=== PATIENT | female | born 1945 | race Caucasian/White ===

== ENCOUNTER 2019-04-28 06:27 | Day surgery (SDC) | payer OTHER ==
[2019-04-25 15:22] VITALS: BMI 19.2
[2019-04-28 08:44] VITALS: TEMP 97.9
[2019-04-28 11:02] VITALS: BP 140/77; PULSE 76
--- NOTE | 2019-04-29 16:52 | PATH ---
Surgical Pathology Report Patient Name: ELVIN IGLESIAS [facility]. Rec. #: [id number] /Age/Gender: 1945 (Age: 73) / F Account: [id number] Location: U-ENDOSCOPY Taken: 04/28/2019 Received: 04/28/2019 Reported: 04/29/2019 Physicians: Taina Fitzpatrick M.D. Specimen(s) Received A: DESCENDING COLON B: POLYP SIGMOID X2 Clinical History Screening Postoperative diagnosis: Colon polyps Final Diagnosis A. DESCENDING COLON POLYP, POLYPECTOMY: TUBULAR ADENOMA. B. SIGMOID POLYP X 2, POLYPECTOMY: HYPERPLASTIC POLYP, TWO FRAGMENTS. Electronically Signed Fermin Fatima M.D. Gross Description A. Received in formalin, labeled "polyp descending colon" is a fan, irregular portion of soft tissue measuring 0.6 cm. in greatest dimension. The specimen is submitted in toto in one cassette. B. Received in formalin, labeled "polyp sigmoid x 2" are 2 fan, irregular portions of soft tissue measuring 0.1 and 0.3 cm. in greatest dimension. The specimens are submitted in toto in one cassette. 04/28/2019 saudi04/28/2019
== END 2019-04-28 09:15 | disposition home or self-care (01) ==
LOC: JASU-ENDO 06:27
PROVIDERS: ATTEND Internal Medicine Gastroenterology
PROC: 0DBN8ZX Excision of Sigmoid Colon, Via Natural or Artificial Opening Endoscopic, Diagnostic (ICD-10-PCS; 2019-04-28)
PROC: 0DBK8ZX Excision of Ascending Colon, Via Natural or Artificial Opening Endoscopic, Diagnostic (ICD-10-PCS; principal; 2019-04-28 08:00)
DX: Z86.010 Personal history of colon polyps (principal); D12.2 Benign neoplasm of ascending colon; D12.5 Benign neoplasm of sigmoid colon
CPT/HCPCS: 88305-TC